=== PATIENT | male | born 1955 | race Caucasian/White ===

== ENCOUNTER → 2020-08-26 | Outpatient (CLI) | payer BC, OTHER ==
[~2020-08-26] VITALS: Ht 193 cm; Wt 122.7 kg
[~2020-08-26] MED LIST: CIALIS5 MG PO; ELIQUIS5 MG PO; LISINOPRIL10 MG PO; METFORMIN HCL1000 M1 PO; PACERONE 200 M200 M1 PO; SIMVASTATIN40 MG PO; TOPROL XL25 MG PO
[2020-08-26 07:29] VITALS: BP 111/68
--- NOTE | 2020-08-26 08:25 | TEE ---
[facility] [address] TRANSESOPHAGEAL ECHOCARDIOGRAM Name: CARMINE LAZO Room #: REG [facility]#: [id number] Admission: 08/26/20 Attend Phys: Emeterio Curtis MD, Discharge: Date of : 57 Report #: [id number] THIS REPORT FOR: cc: Doug Valentine MD, Rene P. MD Santiago, Patrick MD [facility] ~ APPROVED REPORT Study performed: 08/26/2020 07:52:54 EXAM: Transesophageal Echocardiogram Patient Location: Out-Patient Status: routine BSA: 2.52 HR: 100 bpm BP: 105/64 mmHg Rhythm: Atrial Fibrillation Other Information Study Quality: Good Indications Atrial Fibrillation Cardioversion. Procedure After obtaining informed consent, patient underwent transesophageal echo in the [employer]. Type of Sedation : Conscious Sedation Sedation was administered by Camille Mcmahan RN. Sedation start time: 753 Case end Time: 756 Sedation was achieved intravenously with: Versed (3.5) Fentanyl (50) Transesophageal probe was inserted and advanced into esophagus without difficulty by Emeterio Curtis MD [facility]. Echo enhancement indication: R/O Septal defect. Echo enhancement agent administered: Agitated Saline The TAMMY was performed without complications. Synchronized Cardioversion attempted: Successful Synchronized Cardioversion acheived with 120J, 150 Joules after 2 attempt(s). Rhythm following Synchronized Cardioversion: Normal Sinus Rhythm Throughout the procedure, the blood pressure, pulse oximetry, cardiac rhythm, and rate were monitored. [facility] [address] [place] [address] TRANSESOPHAGEAL ECHOCARDIOGRAM Name: CARMINE LAZO Room #: REG [facility].#: [id number] Admission: 08/26/20 Attend Phys: Emeterio Curtis, Discharge: Date of : 57 Report #: [id number] The patient tolerated the procedure without adverse effects. Recovery from conscious sedation was uneventful and vital signs were stable. Left Ventricle Left ventricle is dilated. There is normal left ventricular wall thickness. Left ventricular systolic function is severely decreased. LVEF is 20-25%. Right Ventricle The right ventricle is normal size. Right ventricle is hypokinetic. Atria Left atrium is dilated. No thrombus is visualized in the left atrium or appendage. No shunting noted with contrast bubble injection. Aortic Valve The aortic valve is normal in structure. Trace aortic regurgitation. There is no aortic valvular stenosis. Mitral Valve The mitral valve is normal in structure. Mild mitral regurgitation. No evidence of mitral valve stenosis. Tricuspid Valve The tricuspid valve is normal in structure. Trace tricuspid regurgitation. Great Vessels The aortic root is normal in size. The ascending aorta is normal in size. Pericardium There is no pericardial effusion. <Conclusion> Atrial fibrillation at baseline Consent was obtained Timeout performed After appropriate sedation esophageal probe was advanced without difficulty Left atrial appendage, no obvious mass or clot detected Moderately dilated left atrium Right ventricle normal in size, mildly hypokinetic. [facility] [address] [place] [address] TRANSESOPHAGEAL ECHOCARDIOGRAM Name: CARMINE LAZO Room #: REG [facility].#: [id number] Admission: 08/26/20 Attend Phys: Emeterio Curtis, Discharge: Date of : 57 Report #: [id number] Left ventricle mildly dilated Ejection fraction 20-25%, global hypokinesis Mild/central mitral valve insufficiency Tricuspid aortic valve, no evidence of valvular dysfunction detected No evidence of of tricuspid valve insufficiency No pericardial effusion Aorta no calcification detected Normal aortic root size No evidence of ASD/VSD by color flow/bubble study Patient was successfully cardioverted to sinus rhythm after 125-150 J in a biphasic mode Patient tolerated procedure well Twelve-lead ECG pending <ELECTRONICALLY SIGNED> By: Emeterio Curtis MD, FACC 08/26/20824 4 4 Emeterio Curtis MD, FACC /INF
--- NOTE | 2020-08-26 09:47 | EKG ---
[address] [employer] [address] ELECTROCARDIOGRAM REPORT Name: CARMINE LAZO [facility] [id number] Admission: 08/26/20 Attend Phys: Emeterio Curtis MD, Discharge: Date of : 57 Report #: [id number] [facility] Test Date: 2020-08-26 Test Time: 08:32:38 Pat Name: CARMINE LAZO Department: Room: Gender: M [employer]ward/[employer]: [place] : 1955 Requested By: Emeterio Curtis Order Number: [id number] MD: Emeterio Curtis Measurements Intervals [place] Rate: 58 P: 43 TN: 173 QRS: 42 QRSD: 94 T: 80 QT: 461 QTc: 453 Interpretive Statements Sinus rhythm Probable left atrial enlargement Nonspecific T abnrm, anterolateral leads Compared to ECG 03/04/2008 07:30:05 Sinus tachycardia no longer present T-wave abnormality no longer present Electronically Signed On 08-26-2020 9:47:34 CDT by Emeterio Curtis [email or web address] <ELECTRONICALLY SIGNED> By: Emeterio Curtis MD, [facility] 08/26/20 0947 0832 1 Emeterio Curtis MD, [facility] /EPI
== END | disposition home or self-care (01) ==
LOC: CATH 06:41
PROVIDERS: ATTEND Internal Medicine
DX: I48.91 Unspecified atrial fibrillation (principal); I08.3 Combined rheumatic disorders of mitral, aortic and tricuspid valves; I10 Essential (primary) hypertension; E11.9 Type 2 diabetes mellitus without complications; E78.5 Hyperlipidemia, unspecified; Z98.890 Other specified postprocedural states; Z79.899 Other long term (current) drug therapy; Z79.4 Long term (current) use of insulin; Z79.82 Long term (current) use of aspirin; Z87.19 Personal history of other diseases of the digestive system; Z79.01 Long term (current) use of anticoagulants

== ENCOUNTER → 2020-10-16 | Outpatient (CLI) | payer BC, OTHER | LOC: SJCVCIMAG 07:32 | PROVIDERS: ATTEND Internal Medicine | DX: I08.8 Other rheumatic multiple valve diseases (principal); I42.9 Cardiomyopathy, unspecified; I48.91 Unspecified atrial fibrillation ==